=== PATIENT | male | born 1990 ===

== ENCOUNTER → 2024-12-20 | Outpatient (REF) | payer OTHER ==
[2024-12-25 15:26] LABS: TESTOSTERONE FREE (DIRECT) 63.8 pg/mL (35.0-155.0); TESTOSTERONE TOTAL FOR T&D 462.0 ng/dL (250-1100)
== END ==
LOC: M LAB REF 12:32
PROVIDERS: ATTEND Physician Assistant Medical
DX: R68.82 Decreased libido (principal)